=== PATIENT | female | born 1960 | race Two or more races ===

== ENCOUNTER 2024-05-04 11:02 | Inpatient (IN) | payer OTHER ==
[~2024-05-04] VITALS: Ht 160 cm; Wt 99.8 kg
[2024-05-04] MEDS ORDERED: CLONAZEPAM1 M1 PO (11:24)
[2024-05-04] MEDS ORDERED: ARICEPT10 MG PO (11:24)
[2024-05-04] MEDS ORDERED: 0.9 % SODIUM CHLORIDE 1,000 ML IV ONE (12:00)
[2024-05-04 12:59] LABS: HEMATOCRIT 40.5 % (36.0-45.00); HEMOGLOBIN 13.5 g/dL (12.0-15.00); MEAN CELL VOLUME 85.3 fL (80.00-100.00); MEAN CORPUSCULAR HEMOGLOBIN 28.4 pg (27.00-32.0); MEAN CORPUSCULAR HGB CONC 33.3 g/dl (32.0-36.0); PLATELET COUNT 500 K/uL (150-450); RED BLOOD COUNT 4.75 M/uL (4.00-6.00)
[2024-05-04 13:22] LABS: INR 1.1; PARTIAL THROMBOPLASTIN TIME 30.5 SECONDS (22.0-34.0); PROTHROMBIN TIME 11.9 SECONDS (9.0-11.5)
[2024-05-04 13:27] LABS: ALBUMIN 2.9 gm/dL (3.4-5.0); BILIRUBIN TOTAL 0.53 mg/dL (0.3-1.2); CALCIUM 9.6 mg/dL (8.5-10.1); CREATININE SERUM 0.88 mg/dL (0.55-1.02); GFR 62.81; POTASSIUM 3.37 mEq/L (3.5-5.1); TOTAL PROTEIN 7.9 gm/dL (6.4-8.2)
[2024-05-04] MEDS ORDERED: DIPHENHYDRAMINE HCL 50 MG/ML VIAL 1ML ONE ×2 (16:27→22:00)
[2024-05-04 16:37] LABS: PH,URINE 5.5 (5.0-8.0); URINE APPEARANCE Turbid; URINE BILIRRUBIN Small (NEGATIVE); URINE BLOOD Negative; URINE COLOR Dark Yellow; URINE GLUCOSE Negative (NEGATIVE); URINE KETONE Trace (NEGATIVE); URINE LEUKOCYTE Trace; URINE NITRATE Negative; URINE PROTEIN Trace (NEGATIVE)
[2024-05-04 16:38] LABS: URINE BACTERIA 49.1 uL (0.0-1933); URINE CAST 2.29 uL (0.0-1.40); URINE EPITHELIAL CELLS 13.7 uL (0.0-38.8); URINE RBC 35.7 uL (0.0-20.8); URINE WBC 19.4 uL (0.0-23.2)
[2024-05-04] MEDS ORDERED: DIPHENHYDRAMINE HCL 50 MG/ML VIAL 1ML IV SCH (17:00)
[2024-05-04] MEDS ORDERED: CEFTRIAXONE SODIUM 2,000 MG in 0.9 % SODIUM CHLORIDE 100 ML IV SCH (18:57)
[2024-05-04] MEDS ORDERED: ONDANSETRON HCL 4 MG in 0.9 % SODIUM CHLORIDE 50 ML IV PRN (19:00)
[2024-05-04] MEDS ORDERED: RINGERS SOLUTION,LACTATED 1,000 ML IV SCH (19:15)
[2024-05-04] MEDS ORDERED: CEFTRIAXONE SODIUM 2,000 MG VIAL ONE (20:34)
[2024-05-04 21:47] VITALS: BP 121/82; O2SAT 99
[2024-05-04 22:04] VITALS: BP 121/82
[2024-05-04] MEDS ORDERED: DIPHENHYDRAMINE HCL 50 MG/ML VIAL 1ML IV STA (22:12)
[2024-05-04 22:31] VITALS: BP 120/84; O2SAT 97
[2024-05-05 01:34] VITALS: BP 125/78; O2SAT 100
[2024-05-05] MEDS ORDERED: FAMOTIDINE/PF 20 MG/2 ML VIAL ONE (07:56)
[2024-05-05 08:43] VITALS: BP 120/87
[2024-05-05] MEDS ORDERED: POTASSIUM BICARBONATE/CIT AC 25 MEQ TABLET.EFF PO SCH (09:00)
[2024-05-05] MEDS ORDERED: FAMOTIDINE/PF 20 MG in 0.9 % SODIUM CHLORIDE 8 ML IV PUSH SCH (09:00)
[2024-05-05] MEDS ORDERED: VERAPAMIL HCL 240 MG TABLET.SA PO SCH (09:00)
[2024-05-05] MEDS ORDERED: DONEPEZIL HCL 10 MG TABLET PO SCH (17:00)
[2024-05-05 17:21] VITALS: BP 112/78; O2SAT 98
[2024-05-05] MEDS ORDERED: BACLOFEN 10 MG TABLET PO SCH (21:00)
[2024-05-06 02:50] VITALS: BP 140/79
[2024-05-06] MEDS ORDERED: FAMOTIDINE/PF 20 MG/2 ML VIAL ONE (08:57)
[2024-05-06 09:27] VITALS: BP 143/87; O2SAT 98
[2024-05-06 19:14] VITALS: BP 153/86
[2024-05-06 19:17] VITALS: BP 153/86
[2024-05-07 03:00] VITALS: BP 156/74; O2SAT 98
[2024-05-07 06:32] LABS: HEMATOCRIT 37.6 % (36.0-45.00); HEMOGLOBIN 12.7 g/dL (12.0-15.00); MEAN CELL VOLUME 84.8 fL (80.00-100.00); MEAN CORPUSCULAR HEMOGLOBIN 28.6 pg (27.00-32.0); MEAN CORPUSCULAR HGB CONC 33.8 g/dl (32.0-36.0); PLATELET COUNT 460 K/uL (150-450); RED BLOOD COUNT 4.43 M/uL (4.00-6.00); RED CELL DISTRIBUTION WIDTH 14.6 % (11.5-14.5)
[2024-05-07 06:39] LABS: ALBUMIN 2.5 gm/dL (3.4-5.0); BILIRUBIN TOTAL 0.44 mg/dL (0.3-1.2); CALCIUM 8.9 mg/dL (8.5-10.1); CREATININE SERUM 0.74 mg/dL (0.55-1.02); GFR 79.01; MAGNESIUM 1.7 mg/dL (1.8-2.4); POTASSIUM 3.7 mEq/L (3.5-5.1); TOTAL PROTEIN 6.5 gm/dL (6.4-8.2)
[2024-05-07] MEDS ORDERED: FAMOTIDINE/PF 20 MG/2 ML VIAL ONE (08:20)
[2024-05-07] MEDS ORDERED: LANSOPRAZOLE 30 MG CAPSULE NGT SCH (09:00)
[2024-05-07 09:49] VITALS: BP 118/60
[2024-05-07] MEDS ORDERED: MAGNESIUM SULFATE IN WATER 50 ML IV NR (10:16)
[2024-05-07 19:06] VITALS: BP 120/70
[2024-05-08 02:18] VITALS: BP 132/71
[2024-05-08 08:06] VITALS: BP 147/78; O2SAT 97
[2024-05-08] MEDS ORDERED: FAMOTIDINE/PF 20 MG/2 ML VIAL ONE (09:08)
[2024-05-08] MEDS ORDERED: DIPHENHYDRAMINE HCL 50 MG/ML VIAL 1ML IV NR (13:30)
[2024-05-08] MEDS ORDERED: fentaNYL CITRATE 50 MCG/ML AMPUL IV PUSH NR (13:30)
[2024-05-08] MEDS ORDERED: MIDAZOLAM HCL 2 MG/2 ML VIAL IV NR (13:30)
[2024-05-08] MEDS ORDERED: levoFLOXacin IN DEXTROSE 5 % 5 MG/ML PIGGYBAG IV SCH (17:00)
[2024-05-08 17:57] VITALS: BP 155/79; O2SAT 98
[2024-05-08] MEDS ORDERED: BACLOFEN 10 MG TABLET PO SCH (21:00)
[2024-05-09 01:53] VITALS: BP 113/83
[2024-05-09 10:04] VITALS: BP 127/67
[2024-05-09 17:25] VITALS: BP 145/83
[2024-05-10 02:15] VITALS: BP 120/75; O2SAT 99
[2024-05-10] MEDS ORDERED: MAGNESIUM SULFATE IN WATER 50 ML IV NR (08:45)
[2024-05-10] MEDS ORDERED: DIPHENHYDRAMINE HCL 50 MG/ML VIAL 1ML IV SCH (09:00)
[2024-05-10 09:33] VITALS: BP 101/67
[2024-05-10 12:34] LABS: HEMATOCRIT 38.1 % (36.0-45.00); HEMOGLOBIN 12.9 g/dL (12.0-15.00); MEAN CELL VOLUME 83.9 fL (80.00-100.00); MEAN CORPUSCULAR HEMOGLOBIN 28.4 pg (27.00-32.0); MEAN CORPUSCULAR HGB CONC 33.9 g/dl (32.0-36.0); PLATELET COUNT 531 K/uL (150-450); RED BLOOD COUNT 4.54 M/uL (4.00-6.00)
[2024-05-10 12:53] LABS: INR 1.1; PARTIAL THROMBOPLASTIN TIME 29.1 SECONDS (22.0-34.0); PROTHROMBIN TIME 11.9 SECONDS (9.0-11.5)
[2024-05-10 13:42] LABS: ALBUMIN 2.9 gm/dL (3.4-5.0); BILIRUBIN TOTAL 0.52 mg/dL (0.3-1.2); CALCIUM 9.1 mg/dL (8.5-10.1); CREATININE SERUM 0.85 mg/dL (0.55-1.02); GFR 67.33; GLOBULINA 4.6 G/DL (2.4-3.5); POTASSIUM 3.66 mEq/L (3.5-5.1); TOTAL PROTEIN 7.5 gm/dL (6.4-8.2)
[2024-05-10 18:30] VITALS: BP 143/74
[2024-05-11 03:31] VITALS: BP 126/84; O2SAT 97
[2024-05-11] MEDS ORDERED: DIPHENHYDRAMINE HCL 50 MG/ML VIAL 1ML IV STA (09:02)
[2024-05-11 09:15] VITALS: BP 143/89; O2SAT 97
[2024-05-11] MEDS ORDERED: levoFLOXacin IN DEXTROSE 5 % 5 MG/ML PIGGYBAG IV ONE (17:05)
[2024-05-11] MEDS ORDERED: ONDANSETRON HCL 2 MG/ML VIAL IV PRN (18:00)
[2024-05-11 18:09] VITALS: BP 120/76; O2SAT 96
[2024-05-11] MEDS ORDERED: BUPIVACAINE HCL/Mpf 0.5% 10ML VIAL ONE (18:26)
[2024-05-11] MEDS ORDERED: LIDOCAINE HCL 1%/EPINEPHRINE 20ML VIAL IJ ONE ×2 (18:26→19:30)
[2024-05-11] MEDS ORDERED: BUPIVACAINE HCL/MPF 0.5% 30ML VIAL ONE (18:58)
[2024-05-11] MEDS ORDERED: SUGAMMADEX SODIUM 200 MG/2 ML VIAL IV ONE ×2 (19:26→19:30)
[2024-05-11] MEDS ORDERED: BUPIVACAINE HCL/PF 0.25% 30ML VIAL InF ONE (19:30)
[2024-05-11] MEDS ORDERED: BACITRACIN 15 GM OINT.TUBE TOP ONE (19:36)
[2024-05-12 02:15] VITALS: BP 144/78
[2024-05-12 09:30] LABS: HEMATOCRIT 31.1 % (36.0-45.00); HEMOGLOBIN 10.5 g/dL (12.0-15.00); MEAN CELL VOLUME 84.5 fL (80.00-100.00); MEAN CORPUSCULAR HEMOGLOBIN 28.6 pg (27.00-32.0); MEAN CORPUSCULAR HGB CONC 33.9 g/dl (32.0-36.0); PLATELET COUNT 436 K/uL (150-450); RED BLOOD COUNT 3.68 M/uL (4.00-6.00); RED CELL DISTRIBUTION WIDTH 15.3 % (11.5-14.5)
[2024-05-12 09:34] VITALS: BP 116/68; O2SAT 97
[2024-05-12 10:38] LABS: ALBUMIN 2.1 gm/dL (3.4-5.0); BILIRUBIN TOTAL 0.57 mg/dL (0.3-1.2); CALCIUM 8.2 mg/dL (8.5-10.1); CREATININE SERUM 0.55 mg/dL (0.55-1.02); GFR 111.28; GLOBULINA 3.4 G/DL (2.4-3.5); POTASSIUM 3.59 mEq/L (3.5-5.1); TOTAL PROTEIN 5.5 gm/dL (6.4-8.2)
[2024-05-12 18:33] VITALS: BP 127/78; O2SAT 98
[2024-05-13 02:38] VITALS: BP 155/76
[2024-05-13 08:19] LABS: HEMATOCRIT 32.4 % (36.0-45.00); HEMOGLOBIN 10.8 g/dL (12.0-15.00); MEAN CELL VOLUME 85.4 fL (80.00-100.00); MEAN CORPUSCULAR HEMOGLOBIN 28.5 pg (27.00-32.0); MEAN CORPUSCULAR HGB CONC 33.4 g/dl (32.0-36.0); PLATELET COUNT 349 K/uL (150-450); RED BLOOD COUNT 3.79 M/uL (4.00-6.00); RED CELL DISTRIBUTION WIDTH 15.2 % (11.5-14.5)
[2024-05-13] MEDS ORDERED: POLYETHYLENE GLYCOL 3350 17 GM BLIST.PACK PO SCH (09:00)
[2024-05-13 09:21] VITALS: BP 133/71
[2024-05-13 17:04] VITALS: BP 117/77; BP 132/73
[2024-05-14 02:32] VITALS: BP 109/84; O2SAT 97
[2024-05-14 09:15] VITALS: BP 154/79; O2SAT 96
[2024-05-14] MEDS ORDERED: GABAPENTIN 300 MG CAPSULE PO SCH (17:00)
[2024-05-14 17:03] VITALS: BP 133/85; O2SAT 97
[2024-05-15 00:55] VITALS: BP 148/75; O2SAT 98
[2024-05-15 08:00] VITALS: BP 115/79; O2SAT 96
[2024-05-15] MEDS ORDERED: BENADRYL ALLERG25 MG PO (13:37)
[2024-05-15] MEDS ORDERED: SEROQUEL25 MG GT (13:39)
[2024-05-15] MEDS ORDERED: NEURONTIN300 MG PO (13:40)
[2024-05-15] MEDS ORDERED: BACLOFEN10 MG GT (13:40)
[2024-05-15] MEDS ORDERED: VERAPAMIL ER240 MG PO (13:41)
[2024-05-15] MEDS ORDERED: LANSOPRAZOLE30 MG NGT (13:41)
[2024-05-15] MEDS ORDERED: POLY119PG PO (13:41)
== END 2024-05-15 15:54 | disposition home or self-care (01) | DRG 689 ==
LOC: ER 11:02 → MEDI 20:38 → EDBD 20:38 → MEDI 05-05 14:49
PROVIDERS: General Practice; Surgery; ADMIT Internal Medicine; ATTEND Internal Medicine
PROC: BW28ZZZ Computerized Tomography (CT Scan) of Head (ICD-10-PCS; 2024-05-04)
PROC: 0DJ08ZZ Inspection of Upper Intestinal Tract, Via Natural or Artificial Opening Endoscopic (ICD-10-PCS; 2024-05-08)
PROC: 0DH60UZ Insertion of Feeding Device into Stomach, Open Approach (ICD-10-PCS; principal; 2024-05-11 16:00)
DX: N39.0 Urinary tract infection, site not specified (principal); G21.0 Malignant neuroleptic syndrome; R13.19 Other dysphagia; E86.0 Dehydration; E87.6 Hypokalemia; Z74.01 Bed confinement status; G30.9 Alzheimer's disease, unspecified; F02.80 Dementia in other diseases classified elsewhere, unspecified severity, without behavioral disturbance, psychotic disturbance, mood disturbance, and anxiety; I10 Essential (primary) hypertension; R41.82 Altered mental status, unspecified; G93.89 Other specified disorders of brain; B96.5 Pseudomonas (aeruginosa) (mallei) (pseudomallei) as the cause of diseases classified elsewhere

== ENCOUNTER 2024-05-15 19:17 | Inpatient (IN) | payer OTHER ==
[~2024-05-15] VITALS: Ht 160 cm; Wt 99.8 kg
[~2024-05-15 19:17] MED LIST: ARICEPT10 MG PO; BACLOFEN10 MG GT; BENADRYL ALLERG25 MG PO; CLONAZEPAM1 M1 PO; LANSOPRAZOLE30 MG NGT; NEURONTIN300 MG PO; POLY119PG PO; SEROQUEL25 MG GT; VERAPAMIL ER240 MG PO
--- NOTE | 2024-05-15 19:32 | NUR ---
PTE ALERTA CON HX DE ALZHEIMER CON CANULA NASAL A 3L, FAMILIAR REFIERE QUE LE DIERON DE MICHAEL EN EL ANGELA DE HOY DENISE AL MOMENTO DE LLEGAR AL HOGAR OBSERVO LA PTE HIPOACTIVA Y CON "SOB". PTE DE
[2024-05-15] MEDS ORDERED: LevETIRAcetam 500 MG/5 ML VIAL IV ONE (19:45)
--- NOTE | 2024-05-15 20:01 | NUR ---
JONNY. SUE ORIENTA A PTE Y FAMILIAR SOBRE TX MEDICO ORDENADO POR . REALIZA RADHA DE MUESTRAS DE LAB ALPA ORDEN MEDICA Y BAJO MEDIDAS ASEPTICAS. VENOPUNCION PATENTE BAJANDO IV FLUIDS POR REGULADOR. PTE PENDIENTE A ESTUDIO, SE NOTIFICA.
[2024-05-15 20:06] LABS: HEMATOCRIT 36.3 % (36.0-45.00); HEMOGLOBIN 11.9 g/dL (12.0-15.00); MEAN CELL VOLUME 86.9 fL (80.00-100.00); MEAN CORPUSCULAR HEMOGLOBIN 28.5 pg (27.00-32.0); MEAN CORPUSCULAR HGB CONC 32.8 g/dl (32.0-36.0); PLATELET COUNT 490 K/uL (150-450); RED BLOOD COUNT 4.18 M/uL (4.00-6.00)
[2024-05-15 20:08] LABS: ABG PH 7.439 (7.35-7.45); ABG PO2 71.5 mmHg (80-100); ABG pCO2 37.7 mmHg (35-45); SaO2 94.8 %; Tco2 26.1 mmol/l
[2024-05-15 20:29] LABS: ALBUMIN 2.3 gm/dL (3.4-5.0); BILIRUBIN TOTAL 0.48 mg/dL (0.3-1.2); CALCIUM 8.7 mg/dL (8.5-10.1); CREATININE SERUM 0.55 mg/dL (0.55-1.02); GFR 111.28; GLOBULINA 4.4 G/DL (2.4-3.5); POTASSIUM 3.45 mEq/L (3.5-5.1); TOTAL PROTEIN 6.7 gm/dL (6.4-8.2)
[2024-05-15 20:32] LABS: allen test SATISFACTORY; o2 21 %; puncture site RADIAL LEFT
[2024-05-15] MEDS ORDERED: LORazepam 2 MG/ML VIAL ONE (20:58)
[2024-05-15] MEDS ORDERED: LORazepam 2 MG/ML VIAL IV ONE (21:00)
[2024-05-15] MEDS ORDERED: LevETIRAcetam 500 MG/5 ML VIAL IV SCH (23:06)
--- NOTE | 2024-05-16 00:41 | NUR ---
SE REALIZA MARGARET DE VITALES Y AL MOMENTO SE OBSERVA PACIENTE EN COMPANIA DE FAMILIAR EN CAMA CON BARANDAS ELEVADAS Y EN POSICION SEMI SENTADA. AL MOMENTO SE ENCUENTRA EN COMPANIUA DE FAMILIAR Y EN REPOSO.
[2024-05-16] MEDS ORDERED: 0.9 % SODIUM CHLORIDE 1,000 ML IV SCH (01:00)
[2024-05-16] MEDS ORDERED: LORazepam 2 MG/ML VIAL IV PUSH PRN (01:15)
[2024-05-16 02:13] VITALS: BP 100/80
[2024-05-16] MEDS ORDERED: VERAPAMIL HCL 240 MG TABLET.SA PO SCH (09:00)
[2024-05-16] MEDS ORDERED: GABAPENTIN 100 MG CAPSULE PO SCH (09:00)
[2024-05-16] MEDS ORDERED: ENOXAPARIN SODIUM 40 MG/0.4 ML SYRINGE SUBCUTANEO SCH (09:00)
[2024-05-16] MEDS ORDERED: LANSOPRAZOLE 30 MG CAPSULE GT SCH (09:00)
[2024-05-16] MEDS ORDERED: BACLOFEN 10 MG TABLET PO SCH (09:00)
[2024-05-16 09:13] VITALS: O2SAT 100
[2024-05-16 10:21] VITALS: BP 105/53
[2024-05-16 11:27] LABS: HEMATOCRIT 31.6 % (36.0-45.00); HEMOGLOBIN 10.4 g/dL (12.0-15.00); MEAN CELL VOLUME 85.9 fL (80.00-100.00); MEAN CORPUSCULAR HEMOGLOBIN 28.4 pg (27.00-32.0); PLATELET COUNT 416 K/uL (150-450); RED BLOOD COUNT 3.68 M/uL (4.00-6.00); RED CELL DISTRIBUTION WIDTH 15.7 % (11.5-14.5)
[2024-05-16 12:05] LABS: INR 1.09; PARTIAL THROMBOPLASTIN TIME 34.7 SECONDS (22.0-34.0); PROTHROMBIN TIME 11.8 SECONDS (9.0-11.5)
[2024-05-16 12:11] LABS: ALBUMIN 2.2 gm/dL (3.4-5.0); BILIRUBIN TOTAL 0.45 mg/dL (0.3-1.2); CALCIUM 8.3 mg/dL (8.5-10.1); CREATININE SERUM 0.5 mg/dL (0.55-1.02); GFR 124.21; GLOBULINA 3.6 G/DL (2.4-3.5); MAGNESIUM 2.1 mg/dL (1.8-2.4); POTASSIUM 3.19 mEq/L (3.5-5.1); TOTAL PROTEIN 5.8 gm/dL (6.4-8.2)
[2024-05-16 12:13] LABS: C-REACTIVE PROTEIN 2.91 MG/DL (0.00-0.29)
[2024-05-16 12:14] LABS: CKMB 1.3 NG/ML (0.5-3.6)
[2024-05-16 12:19] LABS: CHOL HDL RATIO 4.2 (0-5.0); TSH 1.13 uIU/mL (0.358-3.74)
[2024-05-16 13:22] VITALS: O2SAT 100
[2024-05-16] MEDS ORDERED: DONEPEZIL HCL 10 MG TABLET PO SCH (17:00)
[2024-05-16] MEDS ORDERED: POTASSIUM CHLORIDE 20MEQ/100ML H2O PB IV ONE (17:45)
[2024-05-16 18:54] LABS: CKMB 1.3 NG/ML (0.5-3.6)
[2024-05-16 19:22] VITALS: BP 95/67; O2SAT 100
[2024-05-16 20:33] VITALS: O2SAT 99
[2024-05-16] MEDS ORDERED: ATORVASTATIN CALCIUM 20 MG TABLET PO SCH (21:00)
[2024-05-17] VITALS (8 sets, daily range): BP systolic 113–138; BP diastolic 68–85; O2SAT 99–100
[2024-05-17] MEDS ORDERED: POTASSIUM BICARBONATE/CIT AC 25 MEQ TABLET.EFF PO SCH (01:00)
[2024-05-17 08:56] LABS: HEMATOCRIT 30.6 % (36.0-45.00); HEMOGLOBIN 10.1 g/dL (12.0-15.00); MEAN CELL VOLUME 86.5 fL (80.00-100.00); MEAN CORPUSCULAR HEMOGLOBIN 28.6 pg (27.00-32.0); MEAN CORPUSCULAR HGB CONC 33.1 g/dl (32.0-36.0); PLATELET COUNT 376 K/uL (150-450); RED BLOOD COUNT 3.53 M/uL (4.00-6.00); RED CELL DISTRIBUTION WIDTH 15.5 % (11.5-14.5)
[2024-05-17] MEDS ORDERED: ZINC PO SCH (09:00)
[2024-05-17] MEDS ORDERED: FOLIC AC PO SCH (09:00)
[2024-05-17] MEDS ORDERED: MAG PO SCH (09:00)
[2024-05-17] MEDS ORDERED: AMINO ACIDS/PROTEIN HYDROLYS 30 ML BLIST.PACK NGT SCH (09:00)
[2024-05-17] MEDS ORDERED: [UNRECOGNIZED DRUG - OTHER] PO SCH (09:00)
[2024-05-17] MEDS ORDERED: IRON PO SCH (09:00)
[2024-05-17 09:17] LABS: ALBUMIN 2.2 gm/dL (3.4-5.0); BILIRUBIN TOTAL 0.49 mg/dL (0.3-1.2); CALCIUM 8.1 mg/dL (8.5-10.1); CHOL HDL RATIO 4.6 (0-5.0); CREATININE SERUM 0.45 mg/dL (0.55-1.02); GFR 140.27; GLOBULINA 3.4 G/DL (2.4-3.5); PHOSPHOROUS 3.2 mg/dL (2.5-4.9); POTASSIUM 3.61 mEq/L (3.5-5.1); TOTAL PROTEIN 5.6 gm/dL (6.4-8.2); TSH 1.62 uIU/mL (0.358-3.74)
[2024-05-17] MEDS ORDERED: DEXTROSE 5 % IN WATER 1,000 ML IV SCH (10:15)
[2024-05-17] MEDS ORDERED: FERROUS SULFATE 220 MG/5 ML ML PO SCH (12:00)
[2024-05-18] VITALS (10 sets, daily range): BP systolic 113–141; BP diastolic 71–84; O2SAT 99–100
[2024-05-18 08:41] LABS: CALCIUM 8.2 mg/dL (8.5-10.1); CREATININE SERUM 0.42 mg/dL (0.55-1.02); GFR 151.9; POTASSIUM 4.2 mEq/L (3.5-5.1)
[2024-05-18] MEDS ORDERED: CYANOCOBALAMIN (VITAMIN B-12) 1,000 MCG TABLET PO SCH (12:00)
[2024-05-19] VITALS (10 sets, daily range): BP systolic 111–126; BP diastolic 74–79; O2SAT 98–100
[2024-05-20 02:00] VITALS: BP 110/69; O2SAT 99
[2024-05-20 05:19] VITALS: O2SAT 100
[2024-05-20 07:53] LABS: HEMATOCRIT 32.8 % (36.0-45.00); MEAN CELL VOLUME 85.1 fL (80.00-100.00); MEAN CORPUSCULAR HEMOGLOBIN 28.7 pg (27.00-32.0); MEAN CORPUSCULAR HGB CONC 33.7 g/dl (32.0-36.0); PLATELET COUNT 422 K/uL (150-450); RED BLOOD COUNT 3.85 M/uL (4.00-6.00); RED CELL DISTRIBUTION WIDTH 15.5 % (11.5-14.5)
[2024-05-20] MEDS ORDERED: VERAPAMIL ER240 MG PO (08:41)
[2024-05-20] MEDS ORDERED: LIPITOR20 MG PO (08:41)
[2024-05-20] MEDS ORDERED: ARICEPT10 MG PO (08:41)
[2024-05-20] MEDS ORDERED: BACLOFEN10 MG PO (08:41)
[2024-05-20] MEDS ORDERED: GABAPENTIN100 MG PO (08:42)
[2024-05-20] MEDS ORDERED: KEPPRA100 MG/1 M GT (08:43)
[2024-05-20] MEDS ORDERED: PREVACID30 MG GT (08:45)
[2024-05-20 09:11] VITALS: BP 120/62
[2024-05-20 09:15] LABS: ALBUMIN 2.2 gm/dL (3.4-5.0); BILIRUBIN TOTAL 0.39 mg/dL (0.3-1.2); CALCIUM 8.3 mg/dL (8.5-10.1); CREATININE SERUM 0.46 mg/dL (0.55-1.02); GFR 136.76; GLOBULINA 3.5 G/DL (2.4-3.5); MAGNESIUM 2.2 mg/dL (1.8-2.4); POTASSIUM 3.6 mEq/L (3.5-5.1); TOTAL PROTEIN 5.7 gm/dL (6.4-8.2)
[2024-05-20 09:43] VITALS: O2SAT 100
== END 2024-05-20 11:31 | disposition home or self-care (01) | DRG 690 ==
LOC: ER 19:17 → MEDJ 05-16 01:03
PROVIDERS: General Practice; Internal Medicine; ADMIT Internal Medicine; ATTEND Internal Medicine
PROC: BW28ZZZ Computerized Tomography (CT Scan) of Head (ICD-10-PCS; principal; 2024-05-15)
PROC: 4A12X4Z Monitoring of Cardiac Electrical Activity, External Approach (ICD-10-PCS; 2024-05-16)
PROC: BW38ZZZ Magnetic Resonance Imaging (MRI) of Head (ICD-10-PCS; 2024-05-18)
DX: N39.0 Urinary tract infection, site not specified (principal); E87.0 Hyperosmolality and hypernatremia; R56.9 Unspecified convulsions; D72.829 Elevated white blood cell count, unspecified; D64.9 Anemia, unspecified; E88.09 Other disorders of plasma-protein metabolism, not elsewhere classified; G30.9 Alzheimer's disease, unspecified; R13.19 Other dysphagia
CPT/HCPCS: 70544